=== PATIENT | female | born 1985 | race American Indian/Alaskan Native ===

== ENCOUNTER 2019-01-10 15:01 | Emergency (ER) | payer OTHER, SELFPAY ==
[2019-01-10 16:40] LABS: Bilirubin,Urine NEG (Negative); Blood,Urine NEG (Negative); Color,Urine Yellow (Yellow); Mucus,Urine FEW /HPF; Protein,Urine <15 mg/dL mg/dL (Negative); Urobilinogen,Urine < 2.0 mg/dL (<2.0)
[2019-01-10 16:46] LABS: HCG Qualitative,Urine Positive (Negative)
--- NOTE | 2019-01-10 18:02 | Emergency Department Report ---
HPI - General Chief Complaint: Nausea/Vomiting/Diarrhea Time Seen by Provider: 01/10/19 17:51 - HPI HPI: Room 19 The patient is a 33-year-old female presenting with a chief complaint of nausea vomiting. The patient states for the past 2 weeks she said loss and nausea with occasional vomiting. Patient denies lower abdominal pain or vaginal bleeding. The patient states her last cycle occurred early November and sometimes she is irregular so it did not worry her. Location: [See above] Duration: [See above] Quality: [See above] Severity: [See above] Modifying factors: [see above] Context: [see above] Mode of transportation: [not driving] ED Past Medical Hx - Past Medical History Previous Medical History?: No - Surgical History Past Surgical History?: No Additional Surgical History: - Family History Family history: no significant - Social History Smoking Status: Never Smoker Substance Use Type: None (denies illicit drug use), Alcohol (occasional) - Medications Home Medications: Home Medications Medication Instructions Recorded Confirmed Last Taken Type Diphenoxylate/Atropine [Lomotil] 1 tab PO QID PRN #20 tablet 10/20/15 Unknown Rx HYDROcodone/APAP 5-325 [[place] 1 - 2 each PO Q6HR PRN #14 tablet 10/20/15 Unknown Rx 5/325] Promethazine [Phenergan TAB] 25 mg PO Q6HR PRN #20 tab 10/20/15 Unknown Rx Fluconazole [Diflucan TAB] 150 mg PO ONCE #1 tablet 01/10/18 Unknown Rx metroNIDAZOLE [Metronidazole] 500 mg PO BID #14 tablet 01/10/18 Unknown Rx Metoclopramide [Reglan] 10 mg PO TID PRN #30 tab 01/10/19 Unknown Rx ED Review of Systems ROS: Stated complaint: NAUSEA Other details as noted in HPI Constitutional: no symptoms reported Eyes: denies: eye pain ENT: denies: throat pain Respiratory: no symptoms reported Cardiovascular: denies: chest pain Endocrine: no symptoms reported Gastrointestinal: nausea, vomiting. denies: abdominal pain Genitourinary: denies: dysuria Musculoskeletal: denies: back pain Neurological: denies: headache Physical Exam - Physical Exam Vital Signs: Vital Signs 01/10/19 15:33 Temperature 99.2 F Pulse Rate 78 Blood Pressure 163/86 Physical Exam: GENERAL: The patient is well-developed well-nourished female sitting on stretcher not appearing to be in acute distress. [] HEENT: Normocephalic. Atraumatic. Extraocular motions are intact. Patient has moist mucous membranes. NECK: Supple. Trachea midline CHEST/LUNGS: Clear to auscultation. There is no respiratory distress noted. HEART/CARDIOVASCULAR: Regular. There is no tachycardia. There is no gallop rub or murmur. ABDOMEN: Abdomen is soft, with mild discomfort to palpation in the midepigastric region. Remainder abdomen soft and nontender to palpation. Patient has normal bowel sounds. There is no abdominal distention. SKIN: There is no rash. There is no edema. There is no diaphoresis. NEURO: The patient is awake, alert, and oriented. The patient is cooperative. The patient has normal speech MUSCULOSKELETAL: There is no evidence of acute injury. ED Course Vital Signs 01/10/19 15:33 Temperature 99.2 F Pulse Rate 78 Blood Pressure 163/86 ED Medical Decision Making - Lab Data Laboratory Tests 01/10/19 15:54 Urine Color Yellow Urine Turbidity Slightly-cloudy Urine pH 6.0 Ur Specific [place] 1.018 Urine Protein <15 mg/dl Urine Glucose (UA) Neg Urine Ketones Neg Urine Blood Neg Urine Nitrite Neg Urine Bilirubin Neg Urine Urobilinogen < 2.0 Ur Leukocyte Esterase Neg Urine WBC (Auto) 2.0 Urine RBC (Auto) 2.0 U Epithel Cells (Auto) 8.0 Urine Mucus Few Urine HCG, Qual Positive A - Differential Diagnosis , UTI Critical care attestation.: If time is entered above; I have spent that time in minutes in the direct care o f this critically ill patient, excluding procedure time. ED Disposition Clinical Impression: , Nausea Disposition: [id number] TO HOME OR SELFCARE Is pt being admited?: No Does the pt Need Aspirin: No Condition: Stable Instructions: Morning Sickness (ED), (ED), Hyperemesis Gravidarum (ED) Additional Instructions: Return to the emergency department immediately should you develop worsening symptoms, fever, inability to tolerate food or liquid or any other concerns. Prescriptions: Metoclopramide [Reglan] 10 mg PO TID PRN #30 tab PRN Reason: Nausea Referrals: ARCHANA CHAVIRA MD [Staff Physician] - [facility] (Dr. Chavira is a [employer]. Please follow up with him to be established as a patient) [facility] [Outside] - [place] (Please follow up here to establish care) Time of Disposition: 18:03
[2019-01-10 18:04] VITALS: BP 143/96
== END 2019-01-10 18:32 | disposition home or self-care (01) ==
LOC: ED 15:01
DX: O26.891 Other specified pregnancy related conditions, first trimester (principal); O21.8 Other vomiting complicating pregnancy
CPT/HCPCS: 81001; 81025; 99283

== ENCOUNTER 2019-06-16 10:24 | Outpatient (CLI) | payer OTHER ==
[2019-06-16] MEDS ORDERED: LACTATED RINGERS 500 ML IV ONE (11:11)
[2019-06-16 11:29] LABS: Hematocrit 31.9 % (30.3-42.9); Hemoglobin 10.8 gm/dl (10.1-14.3); Mean Corpuscular HGB Conc 34 % (30-34); Mean Corpuscular Volume 98 fl (79-97); Platelet Count 362 K/mm3 (140-440); Red Blood Count 3.25 M/mm3 (3.65-5.03); Red Cell Distribution Width 13.5 % (13.2-15.2)
[2019-06-16 11:31] LABS: Bilirubin,Urine NEG (Negative); Blood,Urine NEG (Negative); Color,Urine Yellow (Yellow); Mucus,Urine FEW /HPF; Protein,Urine <15 mg/dL mg/dL (Negative)
[2019-06-16 11:48] LABS: Alanine Aminotransferase 12 units/L (7-56); Uric Acid 4.5 mg/dL (3.5-7.6)
[2019-06-16 13:19] VITALS: BP 147/88
== END 2019-06-16 13:00 | disposition home or self-care (01) ==
LOC: TRG 10:24
PROVIDERS: ATTEND Obstetrics & Gynecology
DX: O47.03 False labor before 37 completed weeks of gestation, third trimester (principal); Z3A.28 28 weeks gestation of pregnancy
CPT/HCPCS: 36415; 59025; 81001; 82565; 83615; 84450; 84460; 84550; 85027; 86850; 86900; 86901

== ENCOUNTER 2019-07-08 21:53 | Outpatient (CLI) | payer OTHER ==
[2019-07-08 23:54] LABS: Mean Corpuscular HGB Conc 34 % (30-34); Mean Corpuscular Volume 97 fl (79-97); Platelet Count 336 K/mm3 (140-440); Red Blood Count 3.29 M/mm3 (3.65-5.03); Red Cell Distribution Width 14.1 % (13.2-15.2)
[2019-07-09 00:01] LABS: Bacteria,Urine 3+ /HPF (Negative); Bilirubin,Urine NEG (Negative); Blood,Urine NEG (Negative); Calcium Oxalate Crystals,Urine 2+; Color,Urine Amber (Yellow); Mucus,Urine 3+ /HPF
[2019-07-09 00:12] LABS: Alanine Aminotransferase 14 units/L (7-56)
[2019-07-09 00:56] LABS: Uric Acid 5.9 mg/dL (3.5-7.6)
[2019-07-09 01:19] VITALS: BP 156/91
--- NOTE | 2019-07-09 02:34 | Ultrasound Report ---
Limited OB ultrasound for biophysical profile FINDINGS: breathing movement, motion, tone and qualitative ADAMA all score 2/2 for a total of 8/8. heart rate is 135 bpm. Signer Name: Shabbir River MD Signed: 07/09/2019 2:30 AM Workstation Name: [id number]
--- NOTE | 2019-07-09 02:34 | Ultrasound Report ---
Limited OB ultrasound for biophysical profile FINDINGS: breathing movement, motion, tone and qualitative ADAMA all score 2/2 for a total of 8/8. heart rate is 135 bpm. Signer Name: Shabbir River MD Signed: 07/09/2019 2:30 AM Workstation Name: [id number]
== END 2019-07-09 03:55 | disposition home or self-care (01) ==
LOC: EDSTATUS 22:22 → TRG 22:26 → LD 22:35 → TRG 07-09 03:55
PROVIDERS: ATTEND Obstetrics & Gynecology
DX: O13.3 Gestational [pregnancy-induced] hypertension without significant proteinuria, third trimester (principal); O30.043 Twin pregnancy, dichorionic/diamniotic, third trimester; O35.0XX0 Maternal care for (suspected) central nervous system malformation in fetus, not applicable or unspecified; O09.293 Supervision of pregnancy with other poor reproductive or obstetric history, third trimester; O99.213 Obesity complicating pregnancy, third trimester; E66.01 Morbid (severe) obesity due to excess calories; Z68.42 Body mass index [BMI] 45.0-49.9, adult; Z3A.33 33 weeks gestation of pregnancy
CPT/HCPCS: 36415; 59025; 76819; 81001; 82565; 83615; 84450; 84460; 84550; 85027